=== PATIENT | female | born 1960 | race Caucasian/White ===

== ENCOUNTER 2021-05-26 06:38 | Emergency (ER) | payer BC ==
[~2021-05-26] VITALS: Ht 162.6 cm; Wt 93.0 kg
[2021-05-26] MEDS: LEVOFLOXACIN IN DEXTROSE 5 % 100 ML IV ONE (06:45)
[2021-05-26 06:48] VITALS: BP_SYST 136
--- NOTE | 2021-05-26 06:54 | NUR ---
Patient to ER bed 5 to gown for evaluation. Side rails up.
[2021-05-26 07:14] LABS: BASOPHILS % (AUTO) 0.6 % (0.0-2.0); EOSINOPHILS # (AUTO) 0.1 K/uL (0.0-0.4); EOSINOPHILS % (AUTO) 1.5 % (0.0-4.0); HEMATOCRIT 44.9 % (36-48); HEMOGLOBIN 15.1 g/dL (12.0-16.0); LYMPHOCYTES # (AUTO) 1.4 K/uL (1.0-5.5); LYMPHOCYTES % (AUTO) 16.9 % (20.5-51.5); MEAN CORPUSCULAR HEMOGLOBIN 30 pg (27-31); MEAN CORPUSCULAR HGB CONC 34 % (32-36); MEAN CORPUSCULAR VOLUME 88 fL (79.0-98.0); MONOCYTES # (AUTO) 0.7 K/uL (0.0-1.0); MONOCYTES % (AUTO) 8.5 % (1.7-9.3); NEUTROPHILS # (AUTO) 5.9 K/uL (1.8-7.7); NEUTROPHILS % (AUTO) 72.5 % (40.0-70.0); PLATELET COUNT (AUTO) 239 K/uL (130-430); RED BLOOD CELL COUNT(AUTO) 5.12 MIL/uL (4.2-6.2); WHITE BLOOD COUNT (AUTO) 8.2 K/uL (4.8-10.8)
--- NOTE | 2021-05-26 07:35 | NUR ---
Patient transported to radiology via gurney, accompanied by technology project manager.
--- NOTE | 2021-05-26 07:38 | NUR ---
Returned from radiology, back to [facility].
--- NOTE | 2021-05-26 07:39 | NUR ---
Pt in bed #5 coming from home accompanied by . Pt c/o abdominal pain that started at 3am and rates pain 7/10. States pain is constant non-radiating. Pt is A&Ox4. Skin intact. No chest pain and no sob. Denies n/v. Allergic to sulfa. Has hx of HTN, DM, Glaucoma, Diverticulitis, and Breast cancer in 2020. Bed in lowest position. VSS.
[2021-05-26 07:40] LABS: CALCIUM 9.3 mg/dL (8.4-11.0); CREATININE 0.72 mg/dL (0.55-1.30); POTASSIUM 4.2 mmol/L (3.5-5.1)
[2021-05-26 07:45] LABS: ALBUMIN 3.8 g/dL (3.4-4.8); TOTAL BILIRUBIN 0.2 mg/dL (0.0-1.0)
--- NOTE | 2021-05-26 07:50 | NUR ---
# 20 gauge angiocath placed to Right AC by VANNESSA Umana. Use of asceptic technique. Opsite placed over site. Blood return noted. Blood for lab drawn from site. Flushed with 10 cc of normal saline. No evidence of infiltration noted. Patient tolerated well.
[2021-05-26] MEDS: NACL 0.9% 1,000 ML IV ONE (08:00)
--- NOTE | 2021-05-26 08:00 | NUR ---
Morphine 4mg and Zofran 4mg given IV push to pt. Pt has no c/o. VSS.
[2021-05-26] MEDS: MORPHINE 4 MG INJ. 4 MG/ML VIAL IVP ONE (08:01)
[2021-05-26] MEDS: ONDANSETRON HCL 4 MG/2 ML VIAL IVP ONE (08:01)
[2021-05-26] MEDS: metroNIDAZOLE 500 mg/NS 100 ML IV ONE (08:06)
--- NOTE | 2021-05-26 08:06 | NUR ---
Initiated Flagyl antibiotic 100ml to run at 200ml/hr. Pt has no c/o.
--- NOTE | 2021-05-26 08:38 | NUR ---
Levaquin 500mg w/ D5 100ml initiaited at 100ml/hr. Pt has no c/o.
--- NOTE | 2021-05-26 08:57 | NUR ---
radiological technician at bedside.
--- NOTE | 2021-05-26 09:35 | NUR ---
Pt ambulated to bathroom with steady gait. Urine cup provided to provide urine sample. VSS.
--- NOTE | 2021-05-26 09:38 | NUR ---
Pt back to room 5 from bathroom and urine sample provided. Connected pt back to quality assurance monitor chassis. VSS. Pt has no c/o.
--- NOTE | 2021-05-26 09:42 | NUR ---
Urine sent to lab for evaluation.
[2021-05-26 09:46] LABS: BILIRUBIN,URINE NEGATIVE (NEGATIVE); COLOR,URINE YELLOW (YELLOW); GLUCOSE,URINE 3+ (NEGATIVE); KETONES,URINE 1+ (NEGATIVE); LEUKOCYTE ESTERASE ,URINE NEGATIVE (NEGATIVE); NITRITE, URINE POSITIVE (NEGATIVE); PROTEIN URINE NEGATIVE (NEGATIVE); UROBILINOGEN,URINE 0.2 (0.2-1.0)
[2021-05-26 09:52] LABS: BLOOD, URINE TRACE (NEGATIVE); CLARITY/URINE SLIGHTLY HAZY (CLEAR)
[2021-05-26 11:13] LABS: BACTERIA,URINE MANY /HPF (None Seen); WBC,URINE 0-3 /HPF (0-3); YEAST,URINE Few /HPF (None Seen)
[2021-05-26] MEDS ORDERED: METR-154 PO (11:37)
[2021-05-26] MEDS ORDERED: CIPR500T5 PO (11:37)
[2021-05-26 11:52] VITALS: BP_SYST 124
--- NOTE | 2021-05-26 11:53 | NUR ---
Patient given written and verbal discharge instructions and verbalizes understanding. ER MD discussed with patient the results and treatment provided. Patient in stable condition. ID arm band removed. IV catheter removed intact and dressing applied, no active bleeding. Rx of Ciprofloxacin and Metronidazole given. Patient educated on pain management and to follow up with PMD. Pain Scale . Opportunity for questions provided and answered. Medication side effect fact sheet provided.
== END 2021-05-26 11:53 | disposition home or self-care (01) ==
LOC: SED 06:38
DX: K57.92 Diverticulitis of intestine, part unspecified, without perforation or abscess without bleeding (principal); I10 Essential (primary) hypertension; E11.9 Type 2 diabetes mellitus without complications; Z79.899 Other long term (current) drug therapy
CPT/HCPCS: 36415; 74176; 76376; 80053; 81000; 83605; 85025; 87086; 96365; 96375; 99284; J1956; J2270; J2405; J3490

== ENCOUNTER 2022-12-27 22:13 | Emergency (ER) | payer BC ==
[~2022-12-27] VITALS: Ht 162.6 cm; Wt 88.5 kg
[~2022-12-27 22:13] MED LIST: CIPR500T5 PO; METR-154 PO
[2022-12-27 22:15] VITALS: BP_SYST 194; PULSE 92; RESP 18; TEMP 98.2; O2SAT 100
[2022-12-27] MEDS ORDERED: MORPHINE 4 MG INJ. 4 MG/ML VIAL IVP ONE (22:45)
[2022-12-27] MEDS ORDERED: ONDANSETRON HCL 4 MG/2 ML VIAL IVP ONE (22:45)
[2022-12-28] MEDS ORDERED: ACETAMINOPHEN 500 MG TABLET PO ONE
[2022-12-28] MEDS ORDERED: KETOROLAC TROMETHAMINE 30 MG VIAL IVP ONE
[2022-12-28] MEDS ORDERED: IBUP-1969 PO (00:42)
[2022-12-28] MEDS ORDERED: BACL10TA PO (00:42)
[2022-12-28 01:04] VITALS: BP_SYST 153; PULSE 92; RESP 20; TEMP 98.2; O2SAT 97
== END 2022-12-28 01:04 | disposition home or self-care (01) ==
LOC: SED 22:13
DX: S62.305A Unspecified fracture of fourth metacarpal bone, left hand, initial encounter for closed fracture (principal); S09.90XA Unspecified injury of head, initial encounter; I10 Essential (primary) hypertension; E11.9 Type 2 diabetes mellitus without complications; W01.198A Fall on same level from slipping, tripping and stumbling with subsequent striking against other object, initial encounter; Y93.89 Activity, other specified; Y92.89 Other specified places as the place of occurrence of the external cause; Y99.8 Other external cause status
CPT/HCPCS: 99285; 70450; 96374; 96375; 73090; 73110; 72125; 76376; 12011; 29125; 93005; J1885; J2405; J2270

== ENCOUNTER 2022-12-29 10:04 | Emergency (ER) | payer BC ==
[~2022-12-29] VITALS: Ht 162.6 cm; Wt 90.7 kg
[~2022-12-29 10:04] MED LIST changes: +BACL10TA PO; +IBUP-1969 PO
[2022-12-29 10:10] VITALS: BP_SYST 151; PULSE 84; RESP 19; TEMP 97.6; O2SAT 98
[2022-12-29] MEDS ORDERED: ACETAMINOPHEN 500 MG TABLET PO ONE (10:45)
[2022-12-29] MEDS ORDERED: IBUPROFEN 400 MG TABLET PO ONE (10:45)
[2022-12-29 12:38] VITALS: BP_SYST 144; PULSE 80; RESP 20; TEMP 97.9; O2SAT 98
== END 2022-12-29 12:37 | disposition home or self-care (01) ==
LOC: SED 10:04
DX: R22.32 Localized swelling, mass and lump, left upper limb (principal); E11.9 Type 2 diabetes mellitus without complications; I10 Essential (primary) hypertension; Z79.899 Other long term (current) drug therapy
CPT/HCPCS: 99283